=== PATIENT | female | born 1980 | race Caucasian/White ===

== ENCOUNTER 2019-07-17 20:50 | Inpatient (IN) | payer OTHER ==
[2019-07-17] MEDS ORDERED: Lactated Ringers 1000 ML Bag* 1,000 ML IV ONE (21:18)
[2019-07-17] MEDS ORDERED: Buffered Lidocaine 1% SYRIN* 1 ML/SYRINGE INTRADERM ONE (21:18)
--- NOTE | 2019-07-17 21:26 | HP ---
General Information - Reason for Visit Contractions - General Information Maternal Age: 39 Grav: 1 Para: 0 SAB: 0 IEA: 0 Estimated Due Date: 07/13/19 Determined By: LMP Gestational Age in Weeks/Days: 40 4/7 Maternal Blood Type and Rh: A Positive - Results this Serology/RPR Result: Non-Reactive Rubella Result: Immune HBsAg Result: Negative HIV Result: Negative GBS Culture Result: Negative Past Medical History Delivery History: See Records Delivery History Comment: No prior deliveries Pertinent Past Medical History: Non-Contributory Pertinent Past Surgical History: None Pertinent Family History: See Records Family History Comment: Father: Type 2 Diabetes, hypertension, hypercholesterolemia Mother: to due breast cancer (postmenopausal) - Antepartal Records Antepartal Records: Reviewed, Complicated by: - AMA age 39 at delivery , due for Pap test Review of Systems Constitutional: Uncomfortable CV Complaint: No Respiratory: Shortness of Breath: No Gastrointestinal: No Nausea/Vomiting, Normal Bowel Movement Genitourinary: No Dysuria, No Bleeding, No Leaking Fluid Musculoskeletal: Contractions Neurological: No Headache, No Visual Changes Movement: Normal Exam Allergies/Adverse Reactions: Allergies No Known Allergies Allergy (Verified 07/17/19 21:18) B/P: 132/74, P: 119, R: 20, T: 98.4 - Measurements Height: 5 ft Weight: 147 lb Weight in lbs: 147.130082 Body Mass Index (BMI): 28.7 Pre- Weight: 112 lb Weight Gained This : 35 lbs and 0 ozs - Exam Breast: Breast Exam Deferred CVA: No CVA Tenderness Extremities: No Edema Heart: Normal Rhythm/Heart Sounds HEENT: No Significant Findings Lungs: Clear Bilaterally Reflexes: DTR 2+ Thyroid: No Thyromegaly - Abdominal Exam Abdomen Exam: Non-Tender, Fundal Height Consistent with Dates - Ultrasound/Biophysical Profile Ultrasound Status: Not Done Targeted Exam Findings See L&D Outpatient Visit Provider Note for Findings: N/A Estimated Weight: 7.5 lb by ady'eleuterio Cervical Exam: 9cm Effacement: 100% Station: 0 Presenting Part: Vertex Membrane Status: Bulging Bleeding/Discharge: Bloody Show EFM Findings - External Monitor Findings Baseline Heart Rate: 120 External Monitor Findings: Accelerations Present, Variability Moderate Contractions: Regular, Strong, 45-90 Seconds Contraction Frequency: 1-3 min Assessment/Plan - Assessment A: IUP at 40 4/7 weeks Category II FHR, doubt metabolic acidemia GBS negative Transition P: Admit to inpatient monitoring per protocol Await urge to push Anticipate SVB - Plan Plan: Admit - Anticipate Vaginal Delivery - Date/Time of Admission Date of Admission: 07/17/19 Time of Admission: 21:15
[2019-07-17] MEDS ORDERED: Lactated Ringers 1000 ML Bag* 1,000 ML IV SCH (22:00)
[2019-07-17] MEDS ORDERED: OXYTOCIN* 10 UNITS/ML 1 ML VIAL IM ONE (23:43)
[2019-07-17] MEDS ORDERED: Misoprostol TAB* 200 MCG PR ONE (23:45)
[2019-07-18] MEDS ORDERED: Misoprostol TAB* 200 MCG ONE (00:07)
[2019-07-18] MEDS ORDERED: Lidocaine 1% INJ* 10 MG/ML 30 ML SDV ONE (00:07)
[2019-07-18] MEDS ORDERED: OXYTOCIN* 10 UNITS/ML 1 ML VIAL ONE (00:07)
[2019-07-18 00:25] LABS: Hematocrit 37 % (35-47); Hemoglobin 12.7 g/dL (12.0-16.0); Mean Corpuscular HGB Conc 34 g/dL (31-36); Mean Corpuscular Hemoglobin 33 pg (27-31); Mean Corpuscular Volume 95 fL (80-97); Mean Platelet Volume 9.9 fL (7.4-10.4); Platelet Count 237 10^3/uL (150-450); Red Cell Distribution Width 12 % (10-15); White Blood Count 20.9 10^3/uL (3.5-10.8)
[2019-07-18] MEDS ORDERED: Glycerin ADULT SUPP PR PRN (00:39)
[2019-07-18] MEDS ORDERED: Dibucaine 1% 28.35 GM TUBE PR PRN (00:39)
[2019-07-18] MEDS ORDERED: Witch Hazel PAD* JAR TOPICAL PRN (00:39)
--- NOTE | 2019-07-18 00:56 | PROCNOTE ---
[facility] OB: Delivery Note - Delivery A Date of : 07/17/19 Time of : 23:30 [place] Sex: Female Weight at : 7 lb 11.812 oz Score 1 Minute: 7 Score 5 Minutes: 9 Gestational Age in Weeks and Days at Delivery: 40 Weeks and 4 Days Delivery Method: Spontaneous Vaginal Labor: Spontaneous Did Patient attempt ?: N/A, No Previous Amniotic Fluid: Clear Estimated Blood Loss: 1,400 Anesthesia/Analgesia: None Delivered By: Yola De León - Nursery Level of Nursery: Regular/Bedside - Perineum Perineal Injury: 2nd Degree Perineal Injury Comment: repaired with 3-0 vicryl under lidocaine infiltration Perineal Repair: By Delivering Practioner - Events Delivery Events of Note: Post- Bleeding - Meds Given - Risk for Falls Delivered OB Patient- Risk for Falls: Heavy Bleeding Fall Risk: Patient is at High Risk for Falls - Additional Delivery Notes Additional Delivery Notes: in spontaneous labor progressed to complete and complete. AROM to clear fluid at 2145. Began pushing with good maternal effort in side-lying position. Slow, controlled delivery of head OA to VIKY at 2330. with left compound hand, shoulders tight. Mother assisted to McRobert's position and shoulders delivered with strong maternal effort. Female delivered to maternal abdomen. HR > 110, Apgars 7 and 9. Cord doubly clamped and cut by 's father once pulsations ceased. initially with mild grunting, taken to warmer briefly for evaluation and then returned to maternal chest. Spontaneous keyla placenta delivered at 2341, appeared intact. Large gush of uterine bleeding noted with and directly after placenta. 10 U IM pitocin given at 2343, bleeding continued to be brisk and 800 mcg rectal cytotec given at 2345. Fundus firm with massage. Perineum and vagina carefully inspected, second degree laceration noted and repair as above. weight 7 lb 12 oz. Mother and baby stable at time of note, feeding plan is breast. EBL = 1400 cc
[2019-07-18] MEDS ORDERED: Lactated Ringers 1000 ML Bag* 1,000 ML IV SCH (01:00)
[2019-07-18] MEDS: Acetaminophen TAB* 325 MG PO PRN (01:56)
[2019-07-18] MEDS: Ibuprofen TAB* 600 MG PO PRN ×4 (01:56→22:07)
[2019-07-18 06:46] LABS: Hematocrit 30 % (35-47); Hemoglobin 10.5 g/dL (12.0-16.0); Mean Corpuscular HGB Conc 35 g/dL (31-36); Mean Corpuscular Hemoglobin 33 pg (27-31); Mean Corpuscular Volume 93 fL (80-97); Mean Platelet Volume 9.6 fL (7.4-10.4); Platelet Count 212 10^3/uL (150-450); Red Blood Count 3.19 10^6 /uL (3.70-4.87); Red Cell Distribution Width 12 % (10-15)
[2019-07-18 07:27] LABS: ABS Monocytes 1.8 10^3/ul (0-0.8); ABS Neutrophils 17.1 10^3/ul (1.5-7.7); Lymphocyte % 4.9 %
[2019-07-18] MEDS ORDERED: Simethicone TAB* 80 MG TAB.CHEW PO SCH (08:30)
[2019-07-18] MEDS: Docusate CAP* 100 MG PO SCH ×3 (10:34→22:07)
[2019-07-18 16:15] LABS: Hematocrit 25 % (35-47); Hemoglobin 8.8 g/dL (12.0-16.0); Mean Corpuscular HGB Conc 36 g/dL (31-36); Mean Corpuscular Hemoglobin 33 pg (27-31); Mean Corpuscular Volume 94 fL (80-97); Mean Platelet Volume 9.5 fL (7.4-10.4); Platelet Count 191 10^3/uL (150-450); Red Blood Count 2.66 10^6 /uL (3.70-4.87); Red Cell Distribution Width 12 % (10-15); White Blood Count 13.9 10^3/uL (3.5-10.8)
[2019-07-18 16:17] LABS: ABS Lymphocytes 1.8 10^3/ul (1.0-4.8); ABS Monocytes 1.8 10^3/ul (0-0.8); ABS Neutrophils 10.2 10^3/ul (1.5-7.7); Eosinophil % 0.1 %; Lymphocyte % 12.8 %
[2019-07-18] MEDS ORDERED: Ferrous Gluconate TAB* 324 MG TAB ONE (22:24)
[2019-07-18] MEDS: Ferrous Gluconate TAB* 324 MG TAB PO SCH (22:49)
[2019-07-19 06:15] LABS: ABS Neutrophils 9.3 10^3/ul (1.5-7.7); Eosinophil % 0.4 %; Hematocrit 24 % (35-47); Hemoglobin 8.2 g/dL (12.0-16.0); Mean Corpuscular HGB Conc 35 g/dL (31-36); Mean Corpuscular Hemoglobin 33 pg (27-31); Mean Corpuscular Volume 95 fL (80-97); Mean Platelet Volume 9.2 fL (7.4-10.4); Platelet Count 176 10^3/uL (150-450); Red Blood Count 2.52 10^6 /uL (3.70-4.87); Red Cell Distribution Width 13 % (10-15); White Blood Count 12.4 10^3/uL (3.5-10.8)
[2019-07-19] MEDS: Ibuprofen TAB* 600 MG PO PRN (07:47)
[2019-07-19] MEDS: Docusate CAP* 100 MG PO SCH (07:48)
[2019-07-19] MEDS: Ferrous Gluconate TAB* 324 MG TAB PO SCH (07:48)
[2019-07-19] MEDS: Acetaminophen TAB* 325 MG PO PRN (07:49)
[2019-07-19 07:54] VITALS: BP 98/60
== END 2019-07-19 14:25 | disposition home or self-care (01) | DRG 806 ==
LOC: MCHOBOUT 20:50 → MCHOB 21:15
PROVIDERS: ADMIT Midwife; ATTEND Midwife
PROC: 10E0XZZ Delivery of Products of Conception, External Approach (ICD-10-PCS; principal; 2019-07-17)
PROC: 0KQM0ZZ Repair Perineum Muscle, Open Approach (ICD-10-PCS; 2019-07-17)
PROC: 10907ZC Drainage of Amniotic Fluid, Therapeutic from Products of Conception, Via Natural or Artificial Opening (ICD-10-PCS; 2019-07-17)
DX: O48.0 Post-term pregnancy (principal); O72.1 Other immediate postpartum hemorrhage; Z37.0 Single live birth; Z3A.40 40 weeks gestation of pregnancy; O76 Abnormality in fetal heart rate and rhythm complicating labor and delivery; O70.1 Second degree perineal laceration during delivery; O32.6XX0 Maternal care for compound presentation, not applicable or unspecified; O90.81 Anemia of the puerperium; D64.9 Anemia, unspecified
CPT/HCPCS: 36415; 85025; 85027; A9270-GY; J2590

== ENCOUNTER 2022-05-25 18:01 | Inpatient (IN) ==
[2022-05-25] MEDS ORDERED: Methylergonovine 0.2 mg AMPULE 1 ml AMP ONE (18:42)
[2022-05-25] MEDS ORDERED: Buffered Lidocaine 1% SYRIN 1 ml INTRADERM ONE (19:09)
[2022-05-25] MEDS ORDERED: Witch Hazel PAD JAR TOPICAL PRN (19:13)
[2022-05-25] MEDS ORDERED: Dibucaine 1% OINT 28.35 GM TUBE PR PRN (19:13)
[2022-05-25] MEDS ORDERED: Methylergonovine 0.2 mg AMPULE 1 ml AMP IM ONE (19:13)
[2022-05-25] MEDS ORDERED: Oxytocin 10 UNITS/ML 1 ML VIAL IM ONE (19:13)
[2022-05-25] MEDS ORDERED: Glycerin ADULT 2.4 gm SUPP PR PRN (19:13)
[2022-05-25] MEDS ORDERED: Lidocaine 1% VIAL 10 MG/ML VIAL 30 ML ONE (19:25)
[2022-05-25] MEDS ORDERED: Oxytocin 10 UNITS/ML 1 ML VIAL ONE (19:25)
[2022-05-25 21:22] LABS: Urine Benzodiazepine Screen None Detected (None Detect); Urine Cannabinoids Screen None Detected (None Detect); Urine Opiates Screen None Detected (None Detect)
[2022-05-26 07:58] LABS: ABS Lymphocytes 1.4 10^3/ul (1.0-4.8); ABS Monocytes 0.9 10^3/ul (0-0.8); ABS Neutrophils 6.9 10^3/ul (1.5-7.7); Eosinophil % 0.3 %; Hematocrit 34 % (35-47); Hemoglobin 11.6 g/dL (12.0-16.0); Lymphocyte % 14.9 %; Mean Corpuscular HGB Conc 34 g/dL (31-36); Mean Corpuscular Hemoglobin 32 pg (27-31); Mean Corpuscular Volume 93 fL (80-97); Mean Platelet Volume 10.2 fL (7.4-10.4); Platelet Count 143 10^3/uL (150-450); Red Blood Count 3.65 10^6 /uL (3.70-4.87); Red Cell Distribution Width 13 % (10-15); White Blood Count 9.2 10^3/uL (3.5-10.8)
[2022-05-27 08:24] VITALS: BP 104/69
== END 2022-05-27 11:06 | disposition home or self-care (01) | DRG 806 ==
LOC: MCHOBOUT 18:01 → MCHOB 18:04
PROVIDERS: ADMIT Advanced Practice Midwife; ATTEND Advanced Practice Midwife